=== PATIENT | male | born 1930 | race Caucasian/White ===

== ENCOUNTER 2016-10-01 20:00 | Emergency (ER) | payer MEDICARE ==
[~2016-10-01] VITALS: Ht 170.2 cm; Wt 73.0 kg
[~2016-10-01 20:00] MED LIST: ASPI-558 PO; BETA1TAB20 PO; CALC-191 PO; CHOL100017 PO; CYAN500T37 PO; DIGO250T72 PO; DOCU-139 PO; DOXA4TAB PO; MIRA50TA PO; MULT-806 PO; POLY17PO6 PO; PSYL0.5217 PO; RANI150T7 PO; UBID100C18 PO
[2016-10-01 20:02] VITALS: Ht 170.2 cm; Wt 73.0 kg
--- OUTSIDE RECORDS SUMMARY | 2016-10-01 20:05 | XMS REPORT | Continuity of Care Document ---
Author Author [facility] Organization [facility] Address Unknown Phone Unavailable Support Name Relationship Address Phone RIVER ISSA MD Caregiver [address] [place] [address] Unavailable JOLLY HALL Caregiver [address] [place] [address] Unavailable JASON RESTREPO Next Of Kin [address] [place] [address] Insurance Providers Guarantor Kylee Restrepo Address [address] [facility] [place] [address] Email DENIED 16 Payer Medicare Policy Number [id number] Subscriber's Name Kylee Restrepo Relationship 18 Self Effective Date 94 [facility] Policy Number [id number] Subscriber's Name Kylee Restrepo Relationship 18 Self Advance Directives Directive Response Recorded Date/Time Ordered Resuscitation Status Full Code, unverified 07/20/16 1:05pm Resuscitation Documents on File No 07/21/16 10:03am DPOA for Healthcare Only Yes 07/21/16 10:03am Living Will Yes 07/21/16 10:03am Problems No problem information available. Medications Current Home Medications Medication Dose Units Route Directions Days Qty Instructions Start Date Aspirin (Aspir 81) 81 Mg Tablet. 81 Mg Oral Twice A Day Calcium Carbonate/Vitamin D3 (Calcium + Vitamin D Tablet) 1 Each Tablet 1 Tab Oral Daily 07/20/16 Cholecalciferol (Vitamin D) 1,000 Unit Tablet 1,000 Unit Oral Bedtime 04/22/10 Cyanocobalamin (Vitamin B-12) 500 Mcg Tablet 1,000 Mcg Oral Give At Noon 04/22/10 Digoxin 250 Mcg Tablet 125 Mcg Oral Bedtime 01/25/12 Docusate Sodium (Stool Softener) 100 Mg Capsule 100 Mg Oral Twice A Day 04/22/10 Doxazosin Mesylate 4 Mg Tablet 4 Mg Oral Bedtime 04/22/10 Mirabegron (Myrbetriq) 50 Mg Tab.er.24h 50 Mg Oral Daily 07/20/16 Multivitamins (Multivitamin) 1 Tab Tablet 1 Tab Oral Evening 03/22 Polyethylene Glycol 3350 (Miralax) 17 Gm Powd.pack 17 G Oral Daily Take 17 Grams (1 capful), by mouth, once a day. 07/21/16 Psyllium Husk (Fiber Therapy) 0.52 G Capsule 0.52 G Oral Twice A Day 04/22/10 Ranitidine Hcl 150 Mg Tablet 150 Mg Oral Daily 07/20/16 Ubidecarenone (Co Q-10) 100 Mg Capsule 100 Mg Oral Daily 04/22/10 Vit A,C & E/Lutein/Minerals (Ocuvite Tablet) 1 Each Tablet 1 Each Oral Daily 05/16/12 Past Home Medications Medication Directions Ordered Status Amitriptyline Hcl 10 Mg Tablet, 10 Mg Oral Daily 01/25/12 Discontinued Casanthranol/Docusate Sodium (Stool Softener+Laxative Cap) 1 Cap Capsule, 1 Cap Oral Tue,Tue,Tue04/22/10 Discontinued Cetirizine Hcl (Zyrtec) 10 Mg Tablet, 10 Mg Oral Give At Noon 04/22/10 Discontinued Digoxin 250 Mcg Tablet, 250 Mcg Oral Hs 4 Days A Week 04/22/10 Discontinued Digoxin 250 Mcg Tablet, 125 Mcg Oral Hs On Mon, Tue, Tue04/22/10 Discontinued Fluticasone Propionate (Flonase) 16 Gm [place].susp, 1 [place] Nasal As Needed Discontinued Simvastatin 40 Mg Tablet, 20 Mg Oral Evening 04/22/10 Discontinued Social History Social History Problem Response Recorded Date/Time Onset Date Status Reason for Hospitalization CYSTO/LEFT URETEROSCOPY/STONE EXTRACTION 2016 12:08pm Not Applicable Not Applicable Chewing Tobacco Status No 11/29/2012 3:18pm Not Applicable Not Applicable Hx Substance Use No 07/20/2016 9:51am Not Applicable Not Applicable Hx Alcohol Use No 07/20/2016 9:51am Not Applicable Not Applicable Has the pt used tobacco in the last 12 months No 07/20/2016 9:51am Not Applicable Not Applicable Query Response Start Date Stop Date Smoking Status Former smoker Hospital Discharge Instructions Instructions: Care Instructions: I was in the hospital because (patient own words): TO HAVE KIDNEY STONE REMOVED Discharge Diet: resume previous activity Discharge Activity: as above Follow Up Appointments: 1 month Pending Lab / Results: No Pending Lab Expected Signs/Symptoms: blood in urine Notify Physician If: unable to void During Business Hours:: Please call the physician's office at [phone] After Business Hours:: Please call [phone] and have the facing cutting machine operator page the physician. Pain Management/Treatment: norco Wound/Incision Care: na Condition at time of discharge: Good Plan of Care Discharge Date 07/21/16 1:38pm Instructions/Education Provided [facility] Prescriptions See Medication Section Functional Status Query Response Date Recorded Ability to complete ADL's impeded by No change July 21, 2016 10:03am Allergies, Adverse Reactions, Alerts Allergen Type Severity Reaction Status Last Updated Codeine Adverse Reaction Mild "MAKES ME GO CRAZY" Active 04/22/10 Immunizations Query Response on File Recorded Date/Time Hx Influenza Vaccination Y 201507/20/16 9:51am Hx Pneumococcal Vaccination Y 201507/20/16 9:51am Hx Influenza Vaccination Y 201507/20/16 9:51am Vital Signs Acute Vital Signs Vital Response Date/Time Temperature (Fahrenheit) 97.2 deg F (96.8 - 99.1) 07/21/2016 11:24am Temperature (Calculated Celsius) 36.05360 degrees C (36.0 - 37.3) 07/21/2016 11:24am Temperature Source Temporal 07/21/2016 11:24am Pulse Rate (adult) 56 bpm (60 - 100) 07/21/2016 1:25pm Respiratory Rate 11 breaths/min (10 - 20) 07/21/2016 1:25pm O2 Sat by Pulse Oximetry 95 % (90 - 100) 07/21/2016 1:25pm Oxygen Delivery Method Room Air 07/21/2016 1:25pm Oxygen Flow Rate 4.00 L/min 07/21/2016 12:25pm Blood Pressure 162/74 mm Hg 07/21/2016 1:25pm Blood Pressure Source Automatic Cuff 07/21/2016 1:25pm Height (Feet) 5 feet 07/21/2016 10:08am Height (Inches) 7.00 inches 07/21/2016 10:08am Weight (Kilograms) 77.200 kg 07/21/2016 10:08am Body Mass Index (BMI) 26.7 07/21/2016 10:08am Results Laboratory Results Test Name Result Units Flags Reference Collection Date/Time Result Date/ Time Comments White Blood Count 7.0 T/MM3 4.5-11.0 07/21/2016 10:04am 07/21/2016 10: 25am Red Blood Count 4.58 M/MM3 4.50-5.90 07/21/2016 10:07/21/2016 10: 25am Hemoglobin 14.3 GM/DL 13.5-17.5 07/21/2016 10:07/21/2016 10:25am Hematocrit 42.2 % 41-53 07/21/2016 10:07/21/2016 10:25am Mean Corpuscular Volume 92.1 UM3 80-100 07/21/2016 10:am 07/21/2016 10:25am Mean Corpuscular Hemoglobin 31.2 UUG 26-34 07/21/2016 10:2016 10:25am Mean Corpuscular Hemoglobin Concent 33.9 GM/DL 31-37 07/21/2016 10:07/21/2016 10:25am RDW Standard Deviation 46.5 FL 36.9-50.2 07/21/2016 10:am 07/21/2016 10:25am Platelet Count 139 T/MM3 130-400 07/21/2016 10:07/21/2016 10:25am Mean Platelet Volume 11.2 UM3 9.4-12.4 07/21/2016 10:07/21/2016 10 :25am Neutrophils (%) (Auto) 54.4 % 33-66 07/21/2016 10:07/21/2016 10: 25am Lymphocytes (%) (Auto) 27.4 % 23-45 07/21/2016 10:07/21/2016 10: 25am Monocytes (%) (Auto) 5.0 % 0-9.0 07/21/2016 10:04am 07/21/2016 10:25am Eosinophils (%) (Auto) 12.2 % H 0-4 07/21/2016 10:07/21/2016 10: 25am Basophils (%) (Auto) 0.9 % 0-2 07/21/2016 10:07/21/2016 10:25am Immature Granulocyte % (Auto) 0.1 % 0.0-0.5 07/21/2016 10:2016 10:25am Absolute Neutrophils (auto) 3.8 T/MM3 1.8-7.7 07/21/2016 10:2016 10:25am Absolute Lymphocytes (auto) 1.9 T/MM3 1-4.8 07/21/2016 10:2016 10:25am Absolute Monocytes (auto) 0.4 T/MM3 0-0.8 07/21/2016 10:2016 10:25am Absolute Eosinophils (auto) 0.9 T/MM3 H 0-0.5 07/21/2016 10:2016 10:25am Absolute Basophils (auto) 0.1 T/MM3 0-0.2 07/21/2016 10:2016 10:25am Absolute Immature Granulocyte (auto 0.01 T/MM3 0.00-0.03 07/21/2016 10: 07/21/2016 10:25am Icterus Index < 2 0-7 07/21/2016 10:07/21/2016 10:34am Chemistry Specimen Hemolysis < 15 0-25 07/21/2016 10:07/21/2016 10:34am 0-25: Specimen Exhibited No Hemolysis. Turbidity < 20 0-20 07/21/2016 10:07/21/2016 10:34am Sodium Level 143 MEQ/L 134-144 07/21/2016 10:07/21/2016 10:34am Potassium Level 4.4 MEQ/L 3.6-5 07/21/2016 10:07/21/2016 10:34am Chloride Level 108 MEQ/L H 98-107 07/21/2016 10:07/21/2016 10:34am Carbon Dioxide Level 30 MEQ/L 22-30 07/21/2016 10:07/21/2016 10: 34am Anion Gap 5 MEQ/L 5-15 07/21/2016 10:07/21/2016 10:34am Blood Urea Nitrogen 15.0 MG/DL 9-20 07/21/2016 10:04am 07/21/2016 10: 34am Creatinine 0.8 MG/DL 0.8-1.5 07/21/2016 10:04am 07/21/2016 10:34am BUN/Creatinine Ratio 19 RATIO 6-26 07/21/2016 10:04am 07/21/2016 10: 34am Glomerular Filtration Rate Calc 91 07/21/2016 10:04am 07/21/2016 10 :34am Glucose Level 90 MG/DL 75-110 07/21/2016 10:04am 07/21/2016 10:34am Calculated Osmolality 276 MOSM/KG 261-280 07/21/2016 10:04am 2016 10:34am Calcium Level 9.7 MG/DL 8.4-10.2 07/21/2016 10:04am 07/21/2016 10:34am Name: KYLEE RESTREPO Unit #: [id number] : 1930 Sex: M Admit Date: Loc / Svc: SCU Discharge Date: DIAGNOSTIC IMAGING REPORT Report #: [id number] [place], [place] Indication: ITS.REASON: STONE BASKET LEFT PROCEDURE: RF KUB: Encounter: Initial Comparison: None Findings: Two fluoroscopic spot images are submitted for interpretation. Images show densities projecting over the pelvis which could be stones and/or phleboliths. There is also changes from probable prior hernia repair noted. Impression: Fluoroscopy as above. Please refer to the dictated procedural note for further details. Fluoroscopy time is 11 seconds. Fluoroscopy dose is 226.2 mRad. . Procedures Procedure Status Date Provider(s) Holmium laser cystolithotripsy Completed 07/21/16 RIVER ISSA MD Encounters Encounter Location Arrival/Admit Date Discharge/Depart Date Attending Provider Departed [facility] 07/21/16 9:38am 07/21/16 1: 38pm RIVER ISSA MD
--- OUTSIDE RECORDS SUMMARY | 2016-10-01 20:06 | XMS REPORT | Continuity of Care Document ---
Author Author [facility] Organization [facility] Address Unknown Phone Unavailable Allergies Active Description Code Type Severity Reaction Onset Reported/Identified Relationship to Patient Clinical Status Yes Codeine Sulfate 13629088FX Drug Allergy Moderate N/A Yes codeine 1550 Drug Allergy N/A N/A 11/15/2015 Confirmed or Verified Yes No Allergy Information Available 143 Drug Allergy N/A N/A 11/15/2015 Confirmed or Verified Medications Problems Date Dx Coded Attending Type Code Diagnosis Diagnosed By 11/15/2015 Hedy VALENCIA, Job Rudolph 414.01 CAD 11/15/2015 Hedy VALENCIA, Job Rudolph 427.31 Atrial fibrillation 11/15/2015 Hedy VALENCIA, Job Rudolph 427.31 Atrial fibrillation 11/15/2015 Hedy VALENCIA, Job Rudolph 530.81 GERD 11/15/2015 Job Knott MD 290.0 Dementia 11/15/2015 Hedy VALENCIA, Job Rudolph 290.0 Dementia 11/15/2015 Job Knott MD 401.1 HTN 11/15/2015 Hedy VALENCIA, Job Rudolph 401.1 HTN 11/15/2015 Job Knott MD 596.89 Other specified disorders of bladder 11/15/2015 Job Knott MD 596.89 Other specified disorders of bladder 11/15/2015 Job Knott MD 266.2 B12 deficiency 11/15/2015 Job Knott MD 266.2 B12 deficiency 11/15/2015 Job Knott MD V70.0 Prevention 11/15/2015 Job Knott MD 599.0 UTI 11/15/2015 MARCIO GUTIERREZ MD, JOB Riddle E53.8 Deficiency of other specified B group vitamins 11/15/2015 MARCIO GUTIERREZ MD, JOB Riddle F03.90 Unspecified dementia without behavioral disturbance 11/15/2015 JOB COELHO MD I10 Essential (primary) hypertension 11/15/2015 MARCIO GUTIERREZ MD, JOB Riddle I25.10 Athscl heart disease of [place] coronary artery w/o ang pctrs 11/15/2015 JOB COELHO MD I48.2 Chronic atrial fibrillation 11/15/2015 MARCIO GUTIERREZ MD, JOB Riddle K21.9 Gastro-esophageal reflux disease without esophagitis 11/15/2015 MARCIO GUTIERREZ MD, JOB Riddle N32.89 Other specified disorders of bladder 11/15/2015 JOB COELHO MD N39.0 Urinary tract infection, site not specified 11/15/2015 JOB COELHO MD R07.9 Chest pain, unspecified 11/15/2015 JOB COELHO MD R10.9 Unspecified abdominal pain 12/02/2015 Job Knott MD V70.0 Prevention 12/02/2015 Job Knott MD 110.5 Tinea corporis 12/16/2015 Job Knott MD V70.0 Prevention 01/13/2016 Job Knott MD V70.0 Prevention 01/13/2016 Job Knott MD 311 Depression 01/13/2016 Job Knott MD 311 Depression 01/14/2016 D E53.8 Deficiency of other specified B group vitamins 01/14/2016 D I10 Essential (primary) hypertension 01/14/2016 D I48.2 Chronic atrial fibrillation 01/14/2016 D R63.4 Abnormal weight loss 01/24/2016 Job Knott MD 719.45 Hip pain 01/24/2016 Jbo Knott MD 729.5 Arm pain 01/24/2016 Job Knott MD F 729.5 Arm pain 01/24/2016 JAYDE VALENCIA, ATILIO Riddle M25.552 Pain in left hip 01/24/2016 JAYDE VALENCIA, ATILIO Riddle M79.601 Pain in right arm 01/24/2016 JAYDE VALENCIA, ATILIO Riddle W19.XXXA Unspecified fall, initial encounter 01/24/2016 JAYDE VALENCIA, ATILIO Riddle Y92.[address] in custodial as place 02/03/2016 Hedy VALENCIA, Job Rudolph V70.0 Prevention 03/16/2016 Hedy VALENCIA, Job Rudolph V70.0 Prevention 03/17/2016 MARCIO GUTIERREZ MD, JOB Riddle R82.90 Unspecified abnormal findings in urine 03/23/2016 Hedy VALENCIA, Job Rudolph V70.0 Prevention 03/23/2016 Hedy VALENCIA, Job Rudolph 466.0 Acute bronchitis 04/14/2016 MARCIO GUTIERREZ MD, JOB Riddle E53.8 Deficiency of other specified B group vitamins 04/25/2016 MARCIO GUTIERREZ MD, JOB Riddle R82.90 Unspecified abnormal findings in urine 04/26/2016 Hedy VALENCIA, Job Rudolhp V70.0 Prevention 04/26/2016 Hedy VALENCIA, Job Rudolph 599.0 UTI 05/09/2016 Hedy VALENCIA, Job Rudolph 682.9 Skin abscess 05/10/2016 Hedy VALENCIA, Job Rudolph V70.0 Prevention 06/01/2016 Job Knott MD V70.0 Prevention 06/01/2016 Hedy VALENCIA, Job Rudolph 715.00 Generalized osteoarthritis, site unspecified 06/01/2016 Hedy VALENCIA, Job Rudolph 782.1 Rash 07/13/2016 Job Knott MD V70.0 Prevention 07/13/2016 Hedy VALENCIA, Job Rudolph 600.00 BPH 07/13/2016 Hedy VALENCIA, Job Rudolph 600.00 BPH 07/13/2016 Hedy VALENCIA, Job Rudolph 592.1 Ureteral stone 08/17/2016 Job Knott MD V70.0 Prevention 09/14/2016 Job Knott MD V70.0 Prevention Procedures Code [place] [address] ROUTINE VENIPUNCTURE JOB COELHO MD 11/15/2015 83286 CHEST X-RAY JOB COELHO MD 11/15/2015 12450 COMPREHEN METABOLIC PANEL JOB COELHO MD 11/15/2015 32424 ASSAY OF DIGOXIN JOB COELHO MD 11/15/2015 87727 URINALYSIS, AUTO, W/O SCOPE JOB COELHO MD 11/15/2015 48966 ASSAY OF TROPONIN, QUANT JOB COELHO MD 11/15/2015 97205 COMPLETE CBC, AUTOMATED JOB COELHO MD 11/15/2015 42792 ELECTROCARDIOGRAM, TRACING JOB COELHO MD 11/15/2015 12682 EMERGENCY DEPT VISIT JOB COELHO MD 11/15/2015 [id number] Follow up appointment in 4 days 11/15/2015 97040 [facility] 11/15/2015 70324 Emergency department visit [facility] 12/02/2015 [id number] Follow up appointment in 4 days 12/02/2015 01062 Initial nursing facility care, per day, E/M of pt, 3 components; mod severity; 35 minutes 12/02/2015 24559 Initial nursing facility care, per day, E/M of pt, 3 components; mod severity; 35 minutes 12/16/2015 54671 Subsequent nurse fac care, day, EM pt, 2/3 components; signific complication/problem; 25 minutes 12/23/2015 76143 Subsequent nurse fac care, day, EM pt, 2/3 components; signific complication/problem; 25 minutes 01/13/2016 16291 Subsequent nurse fac care, day, for EM pt, 2/3 components; unstable, significt new problem; 35 mn 01/13/2016 17022 COMPREHEN METABOLIC PANEL JOB COELHO MD 01/14/2016 85269 ASSAY OF DIGOXIN JOB COELHO MD 01/14/2016 75214 VITAMIN B-12 JOB COELHO MD 01/14/2016 86472 ASSAY THYROID STIM HORMONE JOB COELHO MD 01/14/2016 76118 COMPLETE CBC, AUTOMATED JOB COELHO MD 01/14/2016 72723 X-RAY EXAM OF PELVIS ATILIO DONOHUE MD 01/24/2016 15635 X-RAY EXAM OF ELBOW ATILIO DONOHUE MD 01/24/2016 09409 EMERGENCY DEPT VISIT ATILIO DONOHUE MD 01/24/2016 20842 Emergency department visit high/urgent severity 01/24/2016 25333 Subsequent nurse fac care, day, for EM pt, 2/3 components; unstable, significt new problem; 35 mn 02/03/2016 50089 Subsequent nurse fac care, day, EM pt, 2/3 components; signific complication/problem; 25 minutes 02/03/2016 43135 Subsequent nurse fac care, day, EM pt, 2/3 components; signific complication/problem; 25 minutes 03/16/2016 31237 Subsequent nurse fac care, day, EM pt, 2/3 components; signific complication/problem; 25 minutes 03/16/2016 66407 URINE CULTURE/COLONY COUNT JOB COELHO MD 03/17/2016 95527 Subsequent nurse fac care, day, EM pt, 2/3 components; signific complication/problem; 25 minutes 03/23/2016 23547 Subsequent nurse fac care, day, EM pt, 2/3 components; signific complication/problem; 25 minutes 03/23/2016 52427 VITAMIN B-12 JOB COELHO MD 04/14/2016 79153 URINE CULTURE/COLONY COUNT JOB COELHO MD 04/25/2016 96812 Subsequent nurse fac care, day, EM pt, 2/3 components; signific complication/problem; 25 minutes 04/26/2016 53659 Immunization administration; one vaccine 04/26/2016 86203 Pneumococcal polysaccharide vaccine, 23-valent, adult dose or immunosuppressed pt, for SQ or IM use 04/26/2016 28428 Office/outpatient visit; established patient, level 5 04/26/2016 96244 Incision and drainage of skin abscess; simple or single 05/09/2016 02514 Office/outpatient visit; established patient, level 3 05/09/2016 33526 Immunization administration; one vaccine 05/10/2016 86309 Pneumococcal polysaccharide vaccine, 23-valent, adult dose or immunosuppressed pt, for SQ or IM use 05/10/2016 87607 Office/outpatient visit; established patient, level 5 05/10/2016 02285 Subsequent nurse fac care, day, EM pt, 2/3 components; signific complication/problem; MD 25 minutes 05/18/2016 72463 Subsequent nurse fac care, day, EM pt, 2/3 components; signific complication/problem; MD 25 minutes 06/01/2016 87744 Subsequent nurse fac care, day, EM pt, 2/3 components; signific complication/problem; MD 25 minutes 06/01/2016 71365 Subsequent nurse fac care, day, EM pt, 2/3 components; signific complication/problem; MD 25 minutes 07/13/2016 69790 Subsequent nurse fac care, day, EM pt, 2/3 components; signific complication/problem; MD 25 minutes 07/13/2016 85848 Subsequent nurse fac care, day, EM pt, 2/3 components; signific complication/problem; MD 25 minutes 08/17/2016 60822 Subsequent nurse fac care, day, EM pt, 2/3 components; signific complication/problem; MD 25 minutes 08/21/2016 00136 Subsequent nurse fac care, day, EM pt, 2/3 components; signific complication/problem; MD 25 minutes 09/14/2016 81330 Subsequent nurse fac care, day, EM pt, 2/3 components; signific complication/problem; MD 25 minutes 09/14/2016 Results Test Result Range CBC - 11/15/15 09:07 Eos # 0.02 x10^3 0-0.5 Eos % 0.3 % 0-4 HCT 41.3 % 42.0-52.0 HGB 14.2 G/DL 14.0-18.0 Lymph # 0.87 x10^3 1.0-4.0 Lymph % 12.1 % 20-50 MCH 31.4 PG 27.0-31.0 MCHC 34.4 G/DL 32.0-36.0 MCV 91.4 FL 80-94 [place] # 0.62 x10^3 0.0-0.8 [place] % 8.6 % 1.0-9.0 MPV 10.8 FL 6.0-10.0 Platelet 145 x10^3 150-400 RBC 4.52 x10^3 4.60-6.20 RDW 13.3 % 12-15 WBC 7.20 x10^3 5.8-10.8 Baso # 0.01 x10^3 0-0.2 Baso % 0.1 % 0-2 Neut % 78.9 % 50-70 Neut # 5.68 x10^3 3.0-7.0 Comprehensive Metabolic Panel - 11/15/15 09:29 Sodium 143 MMOLL 134-145 Potassium 4.0 MMOLL 3.6-5.0 Chloride 101 MMOLL 98-107 CO2 27 MMOLL 22-30 Glucose 100 MG/DL 75-110 BUN 19 MG/DL 9-20 Creatinine .87 MG/DL 0.8-1.7 Calcium 9.4 MG/DL 8.4-10.2 T Bili .9 MG/DL 0.2-1.3 T. Protein 6.6 G/DL 6.3-8.2 A/G Ratio 1.3 RATIO Albumin 3.7 G/DL 3.5-5.0 Alk Phos 72 U/L 38-126 ALT 33 U/L 11-66 AST 46 U/L 14-36 EGFR 83 MLMIN Troponin I - 11/15/15 09:29 Troponin I < 0.06 NG/ML Digoxin - 11/15/15 09:29 Digoxin <=.4 NG/ML 0.8-2.0 Urinalysis - 11/15/15 09:54 Squamous Epis N6-10 Bilirubin Negative Negative Blood Trace-lyse Negative Color Yellow Glucose Negative Negative Ketones Trace Negative Leukocyte 2+ Negative Nitrite Negative Negative pH 5.5 5.0-9.0 Urine Appearance Cloudy Protein 1+ Negative Urobilinogen 0.2 MG/DL 0.20 Urine Comments CULTURE IS DESIRED BY PHYSICIAN. [facility] Urine RBC N0-2 Specific [place] 1.015 1.005-1.030 Urine WBC N3-5 Site VOID Culture Urine - 03/19/16 15:54 Culture Urine See Comment Vitamin B12 - 04/14/16 15:39 Vitamin B12 815 pg/mL 213-816 Culture Urine - 04/28/16 14:13 Culture Urine See Comment Encounters ACCT No. Visit Date/Time Discharge Status Pt. Type Provider Facility Loc./Unit Complaint [id number] 09/14/2016 12:59:14 2016 15:10:03 DIS Outpatient Hedy VALENCIA, Job BULLOCK
--- NOTE | 2016-10-01 20:19 | NUR ---
IMAGING PT TO CT AT THIS TIME VIA CART - C-COLLAR IN PLACE, NO SIGN OF DISTRESS. THIS RN TO FOLLOW TO HOLD C-SPINE FOR TRANSFER FROM CART TO BED.
--- OUTSIDE RECORDS SUMMARY | 2016-10-01 20:22 | XMS REPORT | Continuity of Care Document ---
Author Author [facility] Organization [facility] Address Unknown Phone Unavailable Allergies Active Description Code Type Severity Reaction Onset Reported/Identified Relationship to Patient Clinical Status Yes Codeine Sulfate [id number] Drug Allergy Moderate N/A Yes codeine 1550 [...] 599.0 UTI 11/15/2015 MARCIO GUTIERREZ MD, JOB iRddle E53.8 Deficiency of other specified B group vitamins 11/15/2015 MARCIO GUTIERREZ MD, JOB Riddle F03.90 Unspecified dementia without behavioral disturbance 11/15/2015 JOB COELHO MD I10 Essential (primary) hypertension 11/15/2015 MARCIO GUTIERREZ MD, JOB Riddle 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 11/15/2015 JOB [...] Job Knott MD 719.45 Hip pain 01/24/2016 Job Knott MD 729.5 Arm pain 01/24/2016 Job Knott MD F 729.5 Arm pain 01/24/2016 JAYDE VALENCIA, ATILIO Riddle M25.552 Pain in left hip 01/24/2016 JAYDE VALENCIA, ATILIO Riddle M79.601 Pain in right arm 01/24/2016 JAYDE VALENCIA, ATILIO Riddle W19.XXXA Unspecified fall, initial encounter 01/24/2016 JAYDE VALENCIA, ATILIO Riddle Y92.[address] in assisted as place 02/03/2016 Hedy VALENCIA, Job Rudolph [...] findings in urine 04/26/2016 Hedy VALENCIA, Job Rudolph V70.0 Prevention 04/26/2016 Hedy VALENCIA, Job Rudolph [...] Procedures Code [place] [address] ROUTINE VENIPUNCTURE JOB COELHO MD 11/15/2015 44948 CHEST X-RAY JOB COELHO MD 11/15/2015 40788 COMPREHEN METABOLIC PANEL JOB COELHO MD 11/15/2015 16710 ASSAY OF DIGOXIN JOB COELHO MD 11/15/2015 36437 URINALYSIS, AUTO, W/O SCOPE JOB COELHO MD 11/15/2015 44871 ASSAY OF TROPONIN, QUANT JOB COELHO MD 11/15/2015 36680 COMPLETE CBC, AUTOMATED JOB COELHO MD 11/15/2015 02742 ELECTROCARDIOGRAM, TRACING JOB COELHO MD 11/15/2015 41090 EMERGENCY DEPT VISIT JOB COELHO MD 11/15/2015 [id number] Follow up appointment in 4 days 11/15/2015 52666 Emergency department visit high [facility]reat [facility] 11/15/2015 24736 Emergency department visit high severityThreat on license of [facility] 12/02/2015 [id number] Follow up appointment in 4 days 12/02/2015 76955 Initial nursing facility care, per day, E/M of pt, 3 components; mod severity; 35 minutes 12/02/2015 36364 Initial nursing facility care, per day, E/M of pt, 3 components; mod severity; 35 minutes 12/16/2015 73511 Subsequent nurse fac care, day, EM pt, 2/3 components; signific complication/problem; 25 minutes 12/23/2015 19576 Subsequent nurse fac care, day, EM pt, 2/3 components; signific complication/problem; 25 minutes 01/13/2016 15286 Subsequent nurse fac care, day, for EM pt, 2/3 components; unstable, significt new problem; 35 mn 01/13/2016 69032 COMPREHEN METABOLIC PANEL JOB COELHO MD 01/14/2016 01582 ASSAY OF DIGOXIN JOB COELHO MD 01/14/2016 60650 VITAMIN B-12 JOB COELHO MD 01/14/2016 48386 ASSAY THYROID STIM HORMONE JOB COELHO MD 01/14/2016 11330 COMPLETE CBC, AUTOMATED JOB COELHO MD 01/14/2016 39347 X-RAY EXAM OF PELVIS ATILIO DONOHUE MD 01/24/2016 94343 X-RAY EXAM OF ELBOW ATILIO DONOHUE MD 01/24/2016 96944 EMERGENCY DEPT VISIT ATILIO DONOHUE MD 01/24/2016 70627 Emergency department visit high/urgent severity 01/24/2016 44595 Subsequent nurse fac care, day, for EM pt, 2/3 components; unstable, significt new problem; 35 mn 02/03/2016 27624 Subsequent nurse fac care, day, EM pt, 2/3 components; signific complication/problem; 25 minutes 02/03/2016 53244 Subsequent nurse fac care, day, EM pt, 2/3 components; signific complication/problem; 25 minutes 03/16/2016 30300 Subsequent nurse fac care, day, EM pt, 2/3 components; signific complication/problem; 25 minutes 03/16/2016 80909 URINE CULTURE/COLONY COUNT JOB COELHO MD 03/17/2016 45016 Subsequent nurse fac care, day, EM pt, 2/3 components; signific complication/problem; 25 minutes 03/23/2016 69407 Subsequent nurse fac care, day, EM pt, 2/3 components; signific complication/problem; 25 minutes 03/23/2016 36439 VITAMIN B-12 JOB COELHO MD 04/14/2016 52299 URINE CULTURE/COLONY COUNT JOB COELHO MD 04/25/2016 99637 Subsequent nurse fac care, day, EM pt, 2/3 components; signific complication/problem; 25 minutes 04/26/2016 11543 Immunization administration; one vaccine 04/26/2016 40981 Pneumococcal polysaccharide vaccine, 23-valent, adult dose or immunosuppressed pt, for SQ or IM use 04/26/2016 00043 Office/outpatient visit; established patient, level 5 04/26/2016 42065 Incision and drainage of skin abscess; simple or single 05/09/2016 36480 Office/outpatient visit; established patient, level 3 05/09/2016 33289 Immunization administration; one vaccine 05/10/2016 02247 Pneumococcal polysaccharide vaccine, 23-valent, adult dose or immunosuppressed pt, for SQ or IM use 05/10/2016 09872 Office/outpatient visit; established patient, level 5 05/10/2016 31664 Subsequent nurse fac care, day, EM pt, 2/3 components; signific complication/problem; MD 25 minutes 05/18/2016 61304 Subsequent nurse fac care, day, EM pt, 2/3 components; signific complication/problem; MD 25 minutes 06/01/2016 02639 Subsequent nurse fac care, day, EM pt, 2/3 components; signific complication/problem; MD 25 minutes 06/01/2016 65818 Subsequent nurse fac care, day, EM pt, 2/3 components; signific complication/problem; MD 25 minutes 07/13/2016 24329 Subsequent nurse fac care, day, EM pt, 2/3 components; signific complication/problem; MD 25 minutes 07/13/2016 94828 Subsequent nurse fac care, day, EM pt, 2/3 components; signific complication/problem; MD 25 minutes 08/17/2016 24883 Subsequent nurse fac care, day, EM pt, 2/3 components; signific complication/problem; MD 25 minutes 08/21/2016 07201 Subsequent nurse fac care, day, EM pt, 2/3 components; signific complication/problem; MD 25 minutes 09/14/2016 43173 Subsequent nurse fac care, day, EM pt, 2/3 components; signific complication/problem; MD 25 minutes 09/14/2016 Results Test Result Range CBC - 11/15/15 09:07 Eos # 0.02 x10^3 0-0.5 Eos % 0.3 % 0-4 HCT 41.3 % 42.0-52.0 HGB 14.2 G/DL 14.0-18.0 Lymph # 0.87 x10^3 1.0-4.0 Lymph % 12.1 % 20-50 MCH 31.4 PG 27.0-31.0 MCHC 34.4 G/DL 32.0-36.0 MCV 91.4 FL 80-94 [place] # 0.62 x10^3 0.0-0.8 [place] % 8.6 % 1.0-9.0 MPV 10.8 FL [...] Urine Comments CULTURE IS DESIRED BY PHYSICIAN. [facility] Urine RBC N0-2 Specific [place] 1.015 1.005-1.030 Urine WBC N3-5 Site VOID Culture Urine - 03/19/16 15:54 Culture Urine See Comment Vitamin B12 - 04/14/16 15:39 Vitamin B12 815 pg/mL 213-816 Culture Urine - 04/28/16 14:13 Culture Urine See Comment Encounters ACCT No. Visit Date/Time Discharge Status Pt. Type Provider Facility Loc./Unit Complaint [id number] 09/14/2016 12:59:14 2016 15:10:03 DIS Outpatient Hedy VALENCIA, Job BULLOCK
[2016-10-01] MEDS ORDERED: FINA5TAB42 PO (20:24)
[2016-10-01] MEDS ORDERED: GALA4TAB PO (20:27)
[2016-10-01] MEDS ORDERED: MIRT15TA6 PO (20:30)
[2016-10-01] MEDS ORDERED: ACET325T51 PO (20:31)
[2016-10-01] MEDS ORDERED: HYDR-4246 PO ×2 (20:33→20:51)
[2016-10-01] MEDS ORDERED: CLOT12CR TOP (20:36)
[2016-10-01] MEDS ORDERED: ARGI1POW13 PO (20:39)
[2016-10-01] MEDS ORDERED: MENT3.5O TOP (20:40)
--- NOTE | 2016-10-01 20:40 | NUR ---
IMAGING PT RETURN TO ROOM VIA CART AT THIS TIME.
[2016-10-01] MEDS ORDERED: [UNRECOGNIZED DRUG - OTHER] PO (20:43)
[2016-10-01] MEDS ORDERED: IPRA42SP EA NOSTRIL (20:44)
[2016-10-01] MEDS ORDERED: CALC750T4 PO (20:46)
[2016-10-01] MEDS ORDERED: MAGN400O4 PO (20:47)
[2016-10-01] MEDS ORDERED: MAG360OR92 PO (20:48)
[2016-10-01] MEDS ORDERED: LORA-204 PO (20:49)
[2016-10-01] MEDS ORDERED: ONDA4TAB7 PO (20:50)
[2016-10-01] MEDS ORDERED: BISA10SU8 RECTALLY (20:53)
[2016-10-01 21:07] LABS: BASOPHILS % (AUTO) 0.3 % (0-2); EOSINOPHILS # (AUTO) 0.1 T/MM3 (0-0.5); EOSINOPHILS % (AUTO) 1.8 % (0-4); HGB - HEMOGLOBIN 14.6 GM/DL (13.5-17.5); IMMATURE GRANULOCYTE # (AUTO) 0.03 T/MM3 (0.00-0.03); IMMATURE GRANULOCYTE % (AUTO) 0.4 % (0.0-0.5); LYMPHOCYTES # (AUTO) 1.6 T/MM3 (1-4.8); LYMPHOCYTES % (AUTO) 20.9 % (23-45); MEAN CORPUSCULAR HGB 31.5 UUG (26-34); MEAN CORPUSCULAR HGB CONC(MCHC 33.2 GM/DL (31-37); MEAN PLATELET VOLUME 10.8 UM3 (9.4-12.4); MONOCYTES # (AUTO) 0.5 T/MM3 (0-0.8); MONOCYTES % (AUTO) 6.6 % (0-9.0); NEUTROPHILS #(AUTO)-ABSOLUTE 5.4 T/MM3 (1.8-7.7); RED BLOOD COUNT 4.63 M/MM3 (4.50-5.90); WBC - WHITE BLOOD COUNT 7.7 T/MM3 (4.5-11.0)
[2016-10-01 21:15] LABS: ANION GAP 13 MEQ/L (5-15); BUN/CREATININE RATIO 24 RATIO (6-26); CALCIUM 9.7 MG/DL (8.4-10.2); CHLORIDE 107 MEQ/L (98-107); CO2 - CARBON DIOXIDE 29 MEQ/L (22-30); CREATININE 0.8 MG/DL (0.8-1.5); GLOMERULAR FILTRATION RATE 91; GLUCOSE 96 MG/DL (75-110); POTASSIUM 4.6 MEQ/L (3.6-5); SODIUM 149 MEQ/L (134-144)
[2016-10-01 21:24] LABS: PROBNP 1560 PG/ML (0-175)
--- NOTE | 2016-10-01 21:26 | NUR ---
IMAGING PT TO IMAGING AT THIS TIME.
--- NOTE | 2016-10-01 21:35 | ERPDOC ---
Departure Disposition Decision Date: Oct 01, 2016 Disposition Decision Time: 22:41 Disposition: 01 DISCHARGED HOME, SELF-CARE Impression Impression Impression: Primary Impression: Fall Encounter type: initial encounter Qualified Codes: W19.XXXA - Unspecified fall, initial encounter Severity: Moderate Condition: Stable Seen By: Mid-level only Referrals: JOLLY HALL (Family) Patient Instructions: Fall Prevention for Older Adults (ED) Problems/Meds/Labs Reviewed?: Yes Medications reviewed and manag: Yes Additional Instructions: Ct of head and neck today are normal. Xray of pelvis and ribs are normal as well. Labs are negative. Please continue to monitor at home. May apply antibiotic ointment to the skin tear as needed until well healed. FU with PCP if any further issues/concerns. Follow up care ordered?: Yes Mental Status: Alert HPI - Fall/Injury General Chief Complaint: Fall Stated Complaint: FALL Time Seen by Provider: 20:20 Source: patient, EMS Exam Limitations: age (dementia) HPI - Fall/Injury Initial Comments He is from the [facility] [place]. Was found down on the floor tonight per [facility] staff. Was an unwitnessed fall. They did call EMS who transported him initially to [facility]. They do not have Ct capabilities this late and so he was transferred to [facility]. Arrives per EMS with C collar in place. He does have a history of dementia and is not able to fully cooperate with examination due to this confusion. Occurred At: home Onset: Rapid Duration: 1-3 hrs Severity: moderate Injuries/Pain Location: other (Is not able to localize pain but states "ow" to every place that is touched) Context: unknown Loss of Consciousness: unsure Associated Symptoms: other (Difficulty with history due to dementia) Hx of Similar Symptoms: No Allergies: Coded Allergies: codeine (Verified Adverse Reaction, Mild, "MAKES ME GO CRAZY", 10/01/16) Past History Past Medical History Cardiac: A-fib, CAD, CHF Male: kidney stones Surgical History General: appendix, gallbladder Cardiac: cardiac bypass, valve replacement Joint: knee Family History Family History: Negative Vaccines Hx Influenza Vaccination: Yes (2015) Hx Pneumococcal Vaccination: Yes (2016) Social History Smoking Status: Never smoker Does patient use chewing tobac: No Second Hand Exposure: No Substance Use Type: does not use Review of Systems Unable to Obtain ROS Due to: dementia Constitutional Constitutional: DENIES: chills, fever ENMT Ears: DENIES: drainage Sinuses: DENIES: congestion, rhinorrhea Pulmonary Respiratory: DENIES: cough, dyspnea GI Upper Abdomen: DENIES: nausea, vomiting Lower Abdomen: DENIES: constipation, diarrhea Integumentary Skin: DENIES: rash Neurological General: DENIES: numbness, tingling, weakness Physical Exam General General Nourishment: well nourished, well developed, appears stated age, no acute distress, adult, other (C collar in place) General Body Habitus: well groomed Vitals and Pain First Documented Vital Signs Date Time Temp Pulse Resp B/P Pulse Ox O2 Delivery O2 Flow Rate FiO2 10/01/16 20:02 98.7 64 18 153/70 94 Room Air Weight: Kilograms: 73.000 Height (feet): 5 Height (inches): 7.00 Triage Pain Scale: RN VS reviewed by Provider: Yes Normal Exams: Neck: Full range of motion, without adenopathy, JVD, bruits or thyromegaly Chest/Resp: Clear all cabezas, with good airflow, and symmetry bilaterally CV: Regular rate and rhythm, without murmur or gallop, Pulses 2+ all extremities, capillary refill, <2 seconds all ext., no pedal edema noted Abdomen: Bowel sounds positive, soft, non-tender, non-distended, no hepatosplenomegaly, masses or bruits noted Lymphatic: No lymphadenopathy, or lymphedema noted Integumentary: No rashes, hives, or bruising noted Neurologic: Patient is alert Psychiatric: Patient exhibits, appropriate attention, emotion and affect Eyes (brief) Eyes Brief: found: EOMI, PERRL ENMT (brief) ENMT Brief: FOUND: TM clear, TM good light reflex, ear canals clear, mucosa moist, normal dentition, normal tonsils, NOT FOUND: lesions, nasal erythema, nasal exudate, nasal swelling, petechiae, pharnyx erythema, tonsillar deviation Integumentary (brief) Integumentary Brief: FOUND: other (He does have a skin tear on the right hand over the right proximal 4th digit phalanx) Psychiatric (brief) Psychiatric Brief: NOT FOUND: oriented (oriented to person only, this is his baseline) Differential Diagnoses Considering: Concussion, Contusion, Fracture, Subdural Hematoma Progress Results/Orders Orders Procedure Category Date Status Time Cbc W/Auto LAB 10/01/16 Complete Diff-Reflex Manual 20:11 Bmp - Basic Metabolic LAB 10/01/16 Complete Panel 20:11 Ua, Dip Wreflex LAB 10/01/16 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 20:11 EKG EKG 10/01/16 Taken 20:11 Pelvis 1-2 View RAD 10/01/16 Taken Dedicated Pelv 20:11 Ct Head W/O Contrast CT 10/01/16 Taken 20:11 Ct Cervical Spine W/O CT 10/01/16 Taken Contrast 20:11 Iv Lock (Ed Only) EDM 10/01/16 Transmitted 20:11 Oxygen Administration EDM 10/01/16 Transmitted 20:11 Troponin I W LAB 10/01/16 Complete Hemolysis Index 20:11 Probnp LAB 10/01/16 Complete 20:11 Ribs Left With Ap RAD 10/01/16 Taken Chest Neomycin/Polymyxin/Bacitracin PHA 10/01/16 In Process (Neosporin 23:00 Lab Results Laboratory Tests Test 10/01/16 20:46 White Blood Count 7.7T/MM3 Red Blood Count 4.63M/MM3 Hemoglobin 14.6GM/DL Hematocrit 44.0% Mean Corpuscular Volume 95.0UM3 Mean Corpuscular Hemoglobin 31.5UUG Mean Corpuscular Hemoglobin Concent 33.2GM/DL RDW Standard Deviation 43.3FL Platelet Count 193T/MM3 Mean Platelet Volume 10.8UM3 Immature Granulocyte % (Auto) 0.4% Neutrophils (%) (Auto) 70.0% Lymphocytes (%) (Auto) 20.9% Monocytes (%) (Auto) 6.6% Eosinophils (%) (Auto) 1.8% Basophils (%) (Auto) 0.3% Absolute Immature Granulocyte (auto 0.03T/MM3 Absolute Neutrophils (auto) 5.4T/MM3 Absolute Lymphocytes (auto) 1.6T/MM3 Absolute Monocytes (auto) 0.5T/MM3 Absolute Eosinophils (auto) 0.1T/MM3 Absolute Basophils (auto) 0.0T/MM3 Turbidity < 20 Sodium Level 149MEQ/L Potassium Level 4.6MEQ/L Chloride Level 107MEQ/L Carbon Dioxide Level 29MEQ/L Anion Gap 13MEQ/L Blood Urea Nitrogen 19.0MG/DL Creatinine 0.8MG/DL Glomerular Filtration Rate Calc 91 BUN/Creatinine Ratio 24RATIO Glucose Level 96MG/DL Calculated Osmolality 288MOSM/KG Calcium Level 9.7MG/DL Icterus Index < 2 Troponin I < 0.012ng/ml CB-Udu-D-Type Natriuretic Peptide 1560PG/ML Chemistry Specimen Hemolysis 42 Medications Current ED Medications Neomycin/ Polymyxin/ Bacitracin (Neosporin) 3 applic O ONCE TOP ; Start at 23:00; Stop 10/01/16 at 23:[address] of head and neck today are normal. patient was removed from C collar. He does c/o pain in any spot where he is touched but does have increased pain response with palpation of the left anterior ribs and also the right hip. Pelvis xray and left rib films are negative. Will go ahead and let him go home. Will have nursing staff apply antibiotic ointment to the skin tears on the right forearm and the right finger as well. Xray Xray #1: Reason for Exam: fall, hip pain Xray: Pelvis Interpretation: Normal Xray #2: Reason for Exam: fall, rib pain Xray: Ribs L Interpretation: Normal CT CT #1: Reason for Exam: fall, unwitnessed CT: Head no contrast Interpretation: Normal CT #2: Reason for Exam: fall, unwitnessed CT: C-Spine no contrast Interpretation: Normal TITO HERNADEZ APRN Oct 01, 2016 21:35
--- NOTE | 2016-10-01 21:44 | NUR ---
IMAGING PT RETURN TO ROOM AT THIS TIME.
[2016-10-01] MEDS ORDERED: NEOMYCIN/POLYM/BACITR OINT PACKET TOP ONE (23:00)
--- NOTE | 2016-10-01 23:07 | NUR ---
REPORT REPORT CALLED TO [facility] AT THIS TIME (VIDAL GARCIA). [facility] STATES [facility] WILL BE SENDING TRANSPORTATION.
[2016-10-02 00:40] VITALS: BP 150/74; PULSE 108; RESP 28; TEMP 98.7; O2SAT 90
--- NOTE | 2016-10-02 00:40 | NUR ---
DEPART PT DEPARTED IN CARE OF [facility] AT THIS TIME. PT IN DRY BRIEF AND DRESSED PRIOR TO DISMISSAL. REPORT PREVIOUSLY CALLED TO [facility]IDAL GARCIA. PT NO SIGN OF DISTRESS AT THIS TIME. TRANSFERRED FROM CART TO WHEEL CHAIR ASSIST X2 AND GAIT BELT.
--- NOTE | 2016-10-03 09:56 | DI ---
Indication: ITS.REASON: left hip pain PROCEDURE: RIBS LEFT WITH AP CHEST: Encounter: Initial Comparison: None FINDINGS: Chest: The lungs are clear. There is no abnormal airspace opacity, pleural effusion or pneumothorax identified. Elevated right hemidiaphragm. Mild enlargement of the cardiac silhouette. Prior sternotomy. AP and oblique views of the left ribs: No displaced rib fracture is seen. IMPRESSION: No acute cardiopulmonary abnormality. .
--- NOTE | 2016-10-03 10:02 | DI ---
Indication: ITS.REASON: unwitnessed fall. PROCEDURE: PELVIS 1-2 VIEW DEDICATED PELV: Encounter: Initial Comparison: None Findings: There is no acute fracture, dislocation or malalignment identified. Postoperative and degenerative changes in the lumbar spine. Significant bony demineralization limiting detection of nondisplaced fractures. Impression: No acute osseous abnormality. If there is continued pain, CT or MRI is recommended for further evaluation given the patient's age and bony demineralization. .
--- NOTE | 2016-10-03 10:03 | DI ---
Indication: ITS.REASON: unwitnessed fall PROCEDURE: CT CERVICAL SPINE W/O CONTRAST: Encounter: Initial Comparison: None Technique: Axial CT images through the cervical spine were performed without contrast. Coronal and sagittal reformatted images were also obtained. Automated Exposure Control and Iterative Reconstruction dose reducing techniques were utilized. FINDINGS: The alignment of the cervical spine is normal. Multilevel degenerative changes are present. There is no evidence of acute fracture or subluxation of the cervical spine. The atlantoaxial articulation, dens, and upper cervical spine demonstrate no subluxation. Left maxillary sinus disease. Bony demineralization. IMPRESSION: No acute traumatic abnormality of the cervical spine. There is a preliminary report by [employer]. .
--- NOTE | 2016-10-03 10:05 | DI ---
Indication: ITS.REASON: unwitnessed fall PROCEDURE: CT HEAD W/O CONTRAST: Encounter: Initial Comparison: None Technique: Axial CT images through the head were performed without contrast. Iterative Reconstruction dose reducing technique was utilized. FINDINGS: Moderate generalized atrophy. The ventricles are of normal size, shape, and configuration for the patient's age. There is no evidence of acute intracranial hemorrhage, midline displacement, or mass effect. There are extensive areas of low attenuation in the white matter which most likely represent changes of chronic microvascular ischemia. The CT attenuation of the brain parenchyma is otherwise normal within the cerebellum, brain stem, and cerebral hemispheres. The tympanic cavities and mastoid air cells are free of appreciable disease. There are no definite fractures of the skull base, calvarium, or visualized portion of the midface. Sinus mucosal thickening. IMPRESSION: No CT evidence of acute traumatic intracranial injury. There is a preliminary report by [employer]. .
== END 2016-10-02 00:40 | disposition home or self-care (01) ==
LOC: ED 20:00
DX: M25.551 Pain in right hip (principal); R07.81 Pleurodynia; F03.90 Unspecified dementia, unspecified severity, without behavioral disturbance, psychotic disturbance, mood disturbance, and anxiety; W19.XXXA Unspecified fall, initial encounter; Y93.9 Activity, unspecified; Y92.129 Unspecified place in nursing home as the place of occurrence of the external cause; Y99.8 Other external cause status
CPT/HCPCS: 36415; 70450; 71101; 72125; 72170; 80048; 83880; 84484; 85025; 93005; 99284; A9270